=== PATIENT | male | born 1995 | race African-American/Black ===

== ENCOUNTER 2025-04-16 23:48 | Emergency (ER) | payer OTHER ==
[~2025-04-16] VITALS: Ht 182.9 cm; Wt 65.0 kg
[2025-04-17] VITALS: O2SAT 100
[2025-04-17] MEDS: ONDANSETRON HCL 4MG/2ML INJ IV STA (01:51)
[2025-04-17] MEDS: PANTOPRAZOLE SODIUM 40 MG/VIAL IV STA (01:51)
[2025-04-17] MEDS: SODIUM CHLORIDE 0.9% 1,000 ML IV ONE ×2 (01:52→03:59)
[2025-04-17 01:59] LABS: DIFFERENTIAL COMMENT 1; HEMATOCRIT. 39.8 % (42.0-52.0); MEAN CORPUSCULAR HEMOGLOBIN 28.7 pg (28.0-32.0); MEAN CORPUSCULAR HGB CONC 32.7 g/dL (31.0-37.0); MEAN CORPUSCULAR VOLUME 87.6 fL (80.0-94.0); MEAN PLATELET VOLUME 8.4 fl (7.4-10.4); PLATELET 183 x1000/uL (130-400); RED BLOOD CELL COUNT 4.54 mill/uL (4.7-6.1); RED CELL DISTRIBUTION WIDTH 13.3 % (11.6-14.6); WHITE BLOOD COUNT 5.7 x1000/uL (4.5-11.0)
[2025-04-17 02:05] LABS: INR 1.1; PROTHROMBIN TIME 11.3 sec (9.6-11.0)
[2025-04-17 02:06] LABS: CHLORIDE 103 mEq/L (98-107); POTASSIUM 4.4 mEq/L (3.5-5.1); SODIUM 139 mEq/L (136-145)
[2025-04-17 02:07] LABS: CALCIUM 9.9 mg/dL (8.7-10.4); CARBON DIOXIDE 26 mEq/L (21-32)
[2025-04-17 02:12] LABS: CREATININE 1.3 mg/dL (0.6-1.3); GLUCOSE 109 mg/dL (70-105); UREA NITROGEN BLOOD 12 mg/dL (9-23)
[2025-04-17 02:13] LABS: ETHANOL BLOOD < 10 mg/dL (<10)
[2025-04-17] MEDS: MORPHINE SULFATE 4 MG/ML INJ (FOR IV/IM USE) IV SCH (03:26)
[2025-04-17 03:31] LABS: PLATELET ESTIMATE NORMAL
[2025-04-17] MEDS ORDERED: IOHEXOL-300 100 ML BOTTLE ONE (04:53)
[2025-04-17] MEDS ORDERED: POLY119P2 MT (05:41)
[2025-04-17] MEDS ORDERED: PROT40 MT (05:41)
[2025-04-17] MEDS ORDERED: ONDA4TAB50 MT (05:41)
[2025-04-17] MEDS ORDERED: ACET-2708 MT (05:41)
[2025-04-17 06:14] VITALS: BP 96/55; PULSE 82; RESP 16; TEMP 36.7; O2SAT 98
== END 2025-04-17 06:38 | disposition home or self-care (01) ==
LOC: ER 23:48
DX: R10.13 Epigastric pain (principal); M41.9 Scoliosis, unspecified; Z87.19 Personal history of other diseases of the digestive system
CPT/HCPCS: 99285; 80048; 80320; 83605; 83690; 85025; 85610; 36415; 71045; 74177; 96361; 96374; 96375; Q9967; J2405; J2470; J2270; J7030; Z7610 ×2; G0480